=== PATIENT | female | born 1950 | race Caucasian/White ===

== ENCOUNTER 2022-09-27 05:55 | Day surgery (SDC) | payer MEDICARE ==
[2022-09-27] MEDS ORDERED: Sodium Chloride 0.9% 10 ML Syringe FLUSH PRN (06:30)
== END 2022-09-27 08:00 | disposition home or self-care (01) ==
LOC: JP.SDS 05:55
PROVIDERS: ATTEND Ophthalmology
DX: H26.9 Unspecified cataract (principal); K21.9 Gastro-esophageal reflux disease without esophagitis; Z88.0 Allergy status to penicillin
CPT/HCPCS: 66984; J3490; V2632

== ENCOUNTER 2022-10-11 06:02 | Day surgery (SDC) | payer MEDICARE ==
[2022-10-11] MEDS ORDERED: Sodium Chloride 0.9% 10 ML Syringe FLUSH PRN (06:30)
== END 2022-10-11 07:48 | disposition home or self-care (01) ==
LOC: JP.SDS 06:02
PROVIDERS: ATTEND Ophthalmology
DX: H26.9 Unspecified cataract (principal); Z88.0 Allergy status to penicillin
CPT/HCPCS: 66984; J3490